=== PATIENT | female | born 1985 ===

== ENCOUNTER 2016-07-23 21:37 | Emergency (ER) | payer OTHER ==
[2016-07-23 22:16] VITALS: BP 138/92
[2016-07-23] MEDS ORDERED: DiphenhydrAMINE 50 mg/ml Inj IVP STA (22:27)
[2016-07-23] MEDS ORDERED: Sodium Chloride 0.9% 1,000 ML IV STA (22:27)
--- NOTE | 2016-07-23 22:41 | ED PDOC ---
Arrival/HPI - General Chief Complaint: Headache Time Seen by Provider: 07/23/16 22:20 Historian: Patient - History of Present Illness Narrative History of Present Illness (Text): 07/23/16 22:33 31yo female present with complaint of severe right sided temporal headache intermittently x months. states headache became increasingly worse this week. Took Tylenol without relieve. states she have never seen a Doctor for the headache. Denies nausea, vomiting, focal weakness, fever, neck pain, trauma, visual changes, rash, any other complaint. Past Medical History - Provider Review Nursing Documentation Reviewed: Yes - Neurological Hx Migraine: Yes - Psychiatric Hx Substance Use: No Family/Social History - Physician Review Nursing Documentation Reviewed: Yes Family/Social History: Unknown Family HX Smoking Status: y Hx Alcohol Use: No Hx Substance Use: No Allergies/Home Meds Allergies/Adverse Reactions: Allergies No Known Allergies Allergy (Verified 07/23/16 22:16) Review of Systems - Physician Review All systems were reviewed & negative as marked: Yes - Review of Systems Constitutional: Normal Eyes: Normal ENT: Normal Respiratory: Normal Cardiovascular: Normal Gastrointestinal: Normal Genitourinary Female: Normal Musculoskeletal: Normal Skin: Normal Neurological: Headache. absent: Dizziness, Focal Weakness, Speech Changes, Facial Droop Endocrine: Normal Hemo/Lymphatic: Normal Psychiatric: Normal Physical Exam Vital Signs Reviewed: Yes Vital Signs Temp Pulse Resp BP Pulse Ox 07/23/16 22:10 99.9 F H 97 H 18 138/92 H 97 Temperature: Afebrile Blood Pressure: Normal Pulse: Regular Respiratory Rate: Normal Appearance: Positive for: Well-Appearing, Non-Toxic, Comfortable Pain Distress: None Mental Status: Positive for: Alert and Oriented X 3 - Systems Exam Head: Present: Atraumatic, Normocephalic Pupils: Present: PERRL Extroacular Muscles: Present: EOMI Conjunctiva: Present: Normal Mouth: Present: Moist Mucous Membranes Neck: Present: Normal Range of Motion Respiratory/Chest: Present: Clear to Auscultation, Good Air Exchange. No: Respiratory Distress, Accessory Muscle Use Cardiovascular: Present: Regular Rate and Rhythm, Normal S1, S2. No: Murmurs Abdomen: Present: Normal Bowel Sounds. No: Tenderness, Distention, Peritoneal Signs Back: Present: Normal Inspection Upper Extremity: Present: Normal Inspection. No: Cyanosis, Edema Lower Extremity: Present: Normal Inspection. No: Edema Neurological: Present: GCS=15, CN II-XII Intact, Speech Normal, Motor Func Grossly Intact, Normal Sensory Function, Normal Cerebellar Funct, Norm Deep Tendon Reflexes, Gait Normal, Memory Normal, Other (No focal neurological deficit) Skin: Present: Warm, Dry, Normal Color. No: Rashes Psychiatric: Present: Alert, Oriented x 3, Normal Insight, Normal Concentration Medical Decision Making ED Course and Treatment: 07/24/16 01:15 Pt presented for stated history. She had blood in her UA, but pt admitted she is currently on her period. Lab was otherwise unremarkable. On re evaluation pt stated her headache resolved in ED with medication. She asked to be DC home. Head CT was negative Result was DW the pt. she was given Fioricet and referred to a neuro. TRT ED for any new or worsening symptoms. - Lab Interpretations Lab Results: 07/23/16 23:10 07/23/16 23:10 Lab Results 07/23/16 23:17: Urine Color Straw, Urine Appearance Cloudy, Urine pH 7.5, Ur Specific [place] 1.020, Urine Protein 30 H, Urine Glucose (UA) Negative, Urine Ketones Negative, Urine Blood Large H, Urine Nitrate Negative, Urine Bilirubin Negative, Urine Urobilinogen 0.2, Ur Leukocyte Esterase Small H, Urine RBC 2 - 5 , Urine WBC 2 - 5, Ur Epithelial Cells 1 - 3, Urine Bacteria Few 07/23/16 23:10: Sodium 137, Potassium 4.5, Chloride 102, Carbon Dioxide 27, Anion Gap 13, BUN 17, Creatinine 0.7, Est GFR ( Amer) > 60, Est GFR (Non- Af Amer) > 60, Random Glucose 106, Calcium 9.2, Total Bilirubin 0.3, AST 26, ALT 33, Alkaline Phosphatase 61, Total Protein 7.5, Albumin 4.2, Globulin 3.4, Albumin/Globulin Ratio 1.2 07/23/16 23:10: WBC 12.5 H, RBC 4.54, Hgb 12.7, Hct 38.6, MCV 85.0, MCH 28.0, MCHC 32.9, RDW 14.8 H, Plt Count 347, MPV 9.7, Gran % 72.9 H, Lymph % (Auto) 19.4 L, [place] % (Auto) 5.9, Eos % (Auto) 1.6, Baso % (Auto) 0.2, Gran # 9.07 H, Lymph # 2.4, [place] # 0.7 H, Eos # 0.2, Baso # 0.03 - RAD Interpretation Radiology Orders: 07/23/16 22:26 HEAD W/O CONTRAST [CT] Stat - Medication Orders Current Medication Orders: Discontinued Medications Diphenhydramine HCl (Benadryl) 25 mg IVP STAT STA Stop: 07/23/16 22:28 Last Admin: 07/23/16 23:24 Dose: 25 mg Sodium Chloride (Sodium Chloride 0.9%) 1,000 mls @ 999 mls/hr IV .Q1H1M STA Stop: 07/23/16 23:27 Last Admin: 07/23/16 23:16 Dose: 999 mls/hr Ketorolac Tromethamine (Toradol) 30 mg IVP STAT STA Stop: 07/23/16 22:28 Last Admin: 07/23/16 23:24 Dose: 30 mg Metoclopramide HCl (Reglan) 10 mg IVP STAT STA Stop: 07/23/16 22:28 Last Admin: 07/23/16 23:24 Dose: 10 mg Disposition/Present on Arrival - Present on Arrival Any Indicators Present on Arrival: No History of DVT/PE: No History of Uncontrolled Diabetes: No Urinary Catheter: No History of Decub. Ulcer: No History Surgical Site Infection Following: None - Disposition Have Diagnosis and Disposition been Completed?: Yes Diagnosis: Head ache Disposition: HOME/ ROUTINE Disposition Time: 01:20 Patient Plan: Discharge Condition: STABLE Discharge Instructions (ExitCare): Acute Headache (ED) Additional Instructions: Follow up with your Doctor/orthopedist Return to ED for any new or worsening symptoms Prescriptions: Acetaminophen/Butalbital/Caf [Fioricet] 1 tab PO Q4 #10 tab Referrals: PCP,NO [Primary Care Provider] - Follow up with primary Miki Quiroz MD [Staff Provider] - Follow up with primary
[2016-07-23 23:18] LABS: ADD MANUAL DIFF? NO
[2016-07-23 23:32] LABS: ALB/GLOB RATIO 1.2 (1.1-1.8); ALKALINE PHOSPHATASE 61 U/L (38-133); ALT/SGPT 33 U/L (7-56); AST/SGOT 26 U/L (15-39); BILIRUBIN,TOTAL 0.3 mg/dL (0.2-1.3); BLOOD UREA NITROGEN 17 mg/dL (7-21); CALCIUM 9.2 mg/dL (8.4-10.5); CARBON DIOXIDE 27 mmol/L (21-33); CHLORIDE 102 mmol/L (95-110); GFR AFRICAN-AMERICAN > 60; GLUCOSE,RANDOM 106 mg/dL (70-110); POTASSIUM 4.5 mmol/L (3.6-5.0); SODIUM 137 mmol/L (132-148); TOTAL PROTEIN 7.5 g/dL (5.8-8.3)
[2016-07-23 23:43] LABS: BASO # 0.03 K/mm3 (0.0-2.0); BASO % 0.2 % (0.0-3.0); EOS # 0.2 (0.0-0.7); EOS % 1.6 % (1.5-5.0); GRAN # 9.07 (1.4-6.5); GRAN % 72.9 % (50.0-68.0); HEMATOCRIT 38.6 % (36.0-48.0); LYMPH # 2.4 (1.2-3.4); LYMPH % 19.4 % (22.0-35.0); MEAN CORPUSCULAR HGB CONC 32.9 g/dl (31.0-37.0); MEAN PLATELET VOLUME 9.7 fl (7.0-11.0); MONO # 0.7 (0.1-0.6); MONO % 5.9 % (1.0-6.0); PLATELET COUNT 347 10^3/uL (120.0-450.0); RED CELL DISTRIBUTION WIDTH 14.8 % (11.5-14.5); WHITE BLOOD COUNT 12.5 10^3/ul (4.5-11.0)
[2016-07-23 23:45] LABS: PH,URINE 7.5 (4.7-8.0); URINE BILIRUBIN NEGATIVE (NEGATIVE); URINE BLOOD LARGE (NEGATIVE); URINE GLUCOSE (UA) NEGATIVE (NEGATIVE); URINE KETONE NEGATIVE (NEGATIVE); URINE LEUKOCYTE ESTERASE SMALL Leu/uL (NEGATIVE); URINE PROTEIN 30 mg/dL (<30 mg/dL); URINE UROBILINOGEN 0.2 E.U./dL (<1 E.U./dL)
[2016-07-24 00:02] LABS: URINE APPEARANCE CLOUDY (CLEAR); URINE COLOR STRAW (YELLOW)
[2016-07-24 00:10] LABS: URINE BACTERIA FEW (NEG)
[2016-07-24 01:35] VITALS: PULSE 90; RESP 16; TEMP 99; O2SAT 98
--- NOTE | 2016-07-24 07:31 | CT ---
PROCEDURE: CT HEAD WITHOUT CONTRAST. HISTORY: headache COMPARISON: None available. TECHNIQUE: Axial computed tomography images were obtained through the head/brain without intravenous contrast. Radiation dose: Total exam DLP = 677.45 mGy-cm. This CT exam was performed using one or more of the following dose reduction techniques: Automated exposure control, adjustment of the mA and/or kV according to patient size, and/or use of iterative reconstruction technique. FINDINGS: HEMORRHAGE: No intracranial hemorrhage. BRAIN: No mass effect or edema. The alex-white matter differentiation appears intact. .Please note that MRI with diffusion imaging is more sensitive in the detection of acute ischemic event. VENTRICLES: No hydrocephalus. CALVARIUM: Unremarkable. PARANASAL SINUSES: Unremarkable as visualized. No significant inflammatory changes. MASTOID AIR CELLS: Unremarkable as visualized. No inflammatory changes. OTHER FINDINGS: None. IMPRESSION: No focal consolidation, significant pleural effusion, or definite pneumothorax identified. Preliminary impression was provided by virtual radiologic.
== END 2016-07-24 01:41 | disposition home or self-care (01) ==
LOC: ED 21:37
DX: R51 Headache (principal)
CPT/HCPCS: 70450; 80053; 81001; 85025; 87086; 96374; 96375; 99285; J1200; J1885; J2765; J7040